=== PATIENT | male | born 2000 | race Hispanic/Latino ===

== ENCOUNTER 2020-12-30 08:33 | Emergency (ER) | payer SELFPAY ==
--- NOTE | 2020-12-30 10:43 | RAD REPORT ---
EXAM DESCRIPTION: US - Extremity Nonvascular Limited - 12/30/2020 10:13 am CLINICAL HISTORY: Superior left gluteal cleft pain and swelling;Pain COMPARISON: No comparisons FINDINGS: Limited sonographic evaluation was performed of the left gluteal region area of pain and p alpable abnormality. A 2.5 centimeter pole heterogeneous hypoechoic focus is present just deep to the skin surface. This is the correlate to the palpable abnormality and is most likely an abscess. Surro unding tissues are edematous. No other focal collection in the soft tissues. IMPRESSION: A 2.5 centimeter abscess is identified in the left gluteal area of pain and palpable mas s.
--- NOTE | 2020-12-30 12:37 | ER ---
Nurse's Notes [facility] Name: Brady Aden Age: 20 yrs Sex: Male : 2000 Arrival Date: 12/30/2020 Time: 08:34 Bed 27 Private MD: Diagnosis: Cutaneous abscess of buttock Presentation: 12/30 09:14 Chief complaint: Patient states: pain at lower back. Coronavirus screen: Client denies da3 travel out of the [place] in the last 14 days. Ebola Screen: No symptoms or risks identified at this time. Risk Assessment: Do you want to hurt yourself or someone else? Patient reports no desire to harm self or others. 09:14 Method Of Arrival: Ambulatory da3 09:15 Acuity: CARLITOS 4 da3 Triage Assessment: 09:16 General: Appears in no apparent distress. comfortable, uncomfortable, Behavior is calm, da3 cooperative. General: pt/s pain above tail bone positive on palpation.. Pain:. Historical: - Allergies: 09:15 No Known Allergies; da3 - Immunization history:: Client reports having NOT received the Covid vaccine. Screenin:44 Abuse screen: Denies threats or abuse. Nutritional screening: No deficits noted. vg1 Tuberculosis screening: No symptoms or risk factors identified. Fall Risk No fall in past 12 months (0 pts). No secondary diagnosis (0 pts). No IV (0 pts). Ambulatory Aid- None/Bed Rest/Nurse Assist (0 pts). Gait- Normal/Bed Rest/Wheelchair (0 pts) Mental Status- Oriented to own ability (0 pts). Total Dave Fall Scale indicates No Risk (0-24 pts). Assessment: 12:42 General: Appears in no apparent distress. uncomfortable, Behavior is calm, cooperative. vg1 Pain: Complains of pain in coccyx Pain currently is 7 out of 10 on a pain scale. Pain began 2-3 days ago. Neuro: Level of Consciousness is awake, alert, obeys commands, Oriented to person, place, time, situation. Cardiovascular: Patient's skin is warm and dry. Respiratory: Airway is patent Respiratory effort is even, unlabored. GI: No signs and/or symptoms were reported involving the gastrointestinal system. : No signs and/or symptoms were reported regarding the genitourinary system. EENT: No signs and/or symptoms were reported regarding the EENT system. Derm: Skin is healthy with good turgor, Skin is pink, warm \T\ dry. Abscess located on sacrum. Musculoskeletal: Circulation, motion, and sensation intact. Vital Signs: 09:16 BP 142 / 89; Pulse 77; Resp 18; Temp 98.8; Pulse Ox 98% on R/A; da3 ED Course: 08:34 Patient arrived in ED. as 09:02 [facility]C [facility] kb 09:02 Angel Luis Stoddard MD is Attending Physician. kb 09:15 Triage completed. da3 10:12 US Extrmty Nonvasular Limited In Process Unspecified. EDMS 12:23 Patient has correct armband on for positive identification. Placed in gown. Bed in low vg1 position. 12:38 Ivy Garay, RN is Primary Nurse. vg1 12:44 Arm band placed on. vg1 12:44 No provider procedures requiring assistance completed. Patient did not have IV access vg1 during this emergency room visit. Administered Medications: No medications were administered Outcome: 12:37 Discharge ordered by . kdr 12:44 Discharged to home ambulatory. vg1 12:44 Condition: stable 12:44 Discharge instructions given to patient, Instructed on discharge instructions, follow up and referral plans. medication usage, Demonstrated understanding of instructions, follow-up care, medications, Prescriptions given X 1. 12:45 Patient left the ED. vg1 Signatures: Dispatcher [employer] EDLA Apryl Poole FNP-C FNP-Angel Luis Rutledge MD MD kdr Martinez, Amelia as Ivy Garay, RN RN vg1 Jackson Joe, ERICKA RN da3
--- NOTE | 2020-12-30 12:37 | EDPHYS ---
Physician Documentation [facility] Name: Brady Aden Age: 20 yrs Sex: Male : 2000 Arrival Date: 12/30/2020 Time: 08:34 Bed 27 Private MD: ED Physician Angel Luis Stoddard HPI: 12/30 09:41 This 20 yrs old Male presents to ER via Ambulatory with complaints of Superior kdr left gluteal cleft pain and swelling. 09:41 The patient presents with pain Since yesterday, the patient has complained of kdr increasing pain in his superior left gluteal cleft. He has not had this before. He denies any prior history of similar pain.. The symptoms are located in the Superior left gluteal cleft. The pain does not radiate. The problem was sustained from unknown cause. Onset: The symptoms/episode began/occurred gradually, yesterday. Modifying factors: The patient symptoms are alleviated by nothing, the patient symptoms are aggravated by any movement. Severity of symptoms: At their worst the symptoms were mild, in the emergency department the symptoms are unchanged. The patient has not experienced similar symptoms in the past. The patient has not recently seen a physician. Historical: - Allergies: 09:15 No Known Allergies; da3 - Immunization history:: Client reports having NOT received the Covid vaccine. ROS: 09:41 Constitutional: Negative for fever, chills, and weight loss, Eyes: Negative for injury, kdr pain, redness, and discharge, ENT: Negative for injury, pain, and discharge, Neck: Negative for injury, pain, and swelling, Cardiovascular: Negative for chest pain, palpitations, and edema, Respiratory: Negative for shortness of breath, cough, wheezing, and pleuritic chest pain, Abdomen/GI: Negative for abdominal pain, nausea, vomiting, diarrhea, and constipation, : Negative for injury, bleeding, discharge, and swelling, MS/Extremity: Negative for injury and deformity, Skin: Negative for injury, rash, and discoloration, Neuro: Negative for headache, weakness, numbness, tingling, and seizure activity. Psych: Negative for depression, anxiety, suicide ideation, homicidal ideation, and hallucinations, Allergy/Immunology: Negative for hives, rash, and allergies, Endocrine: Negative for neck swelling, polydipsia, polyuria, polyphagia, and marked weight changes, Hematologic/Lymphatic: Negative for swollen nodes, abnormal bleeding, and unusual bruising. 09:41 Back: Positive for pain at rest, pain with movement, of the sacrum. Exam: 09:41 Constitutional: This is a well developed, well nourished patient who is awake, alert, kdr and in no acute distress. Head/Face: Normocephalic, atraumatic. 09:41 Back: pain, that is mild, of the sacrum, There is a small area on the left aspect of the superior gluteal cleft that is tender with minimal swelling. There is minimal erythema and no other obvious injury or abnormality.. Vital Signs: 09:16 BP 142 / 89; Pulse 77; Resp 18; Temp 98.8; Pulse Ox 98% on R/A; da3 Procedures: 12:34 I \T\ D: Incision and drainage was performed for an abscess of the The abscess area is in kdr the gluteal cleft. It is on the lateral aspect of the left side superiorly Prepped with Betadine, Drained small amount purulent fluid. Since wound was draining already, I expressed a small amount of purulent material. The patient felt better in the apparent abscess appeared to be decompressed. I advised the patient to utilize sitz bath at home along with some antibiotics and follow-up with surgery.. MDM: 12:34 Data reviewed: vital signs, nurses notes. kdr 12:37 Patient medically screened. kdr 12/30 09:38 Order name: US Vincent Gusman Limited; Complete Time: 11:21 kdr Administered Medications: No medications were administered Disposition Summary: 12/30/20 12:37 Discharge Ordered Location: Home kdr Problem: new kdr Symptoms: have improved kdr Condition: Stable kdr Diagnosis - Cutaneous abscess of buttock kdr Followup: kdr - With: Private Physician - When: 2 - 3 days - Reason: Wound Recheck, If symptoms return, Further diagnostic work-up, Recheck today's complaints, Continuance of care, Re-evaluation by your physician Discharge Instructions: - Discharge Summary Sheet kdr - How to Take a Sitz Bath kdr - Skin Abscess, [id number] kdr Forms: - Medication Reconciliation Form kdr - Thank You Letter kdr - Antibiotic Education kdr Prescriptions: - Bactrim DS 800-160 mg Oral Tablet - take 1 tablet by ORAL route every 12 hours for 7 days; 14 tablet; Refills: 0, kdr Product Selection Permitted Signatures: Dispatcher [employer] Angel Luis Mcgregor MD MD kdr Jackson Joe, RN RN da3
[2020-12-30] MEDS ORDERED: LIDOCAINE 1% W/EPI 1:100,000 MDV 20 ML VIAL ONE (12:47)
[2020-12-30 12:56] VITALS: BP 142/89; TEMP 98.8; O2SAT 98
[2020-12-30] MEDS ORDERED: HYDRALAZINE HCL 25 MG TABLET ONE (14:20)
== END 2020-12-30 12:45 | disposition home or self-care (01) ==
LOC: ER 08:33
DX: L02.31 Cutaneous abscess of buttock (principal)
CPT/HCPCS: 76882; 99283

== ENCOUNTER 2025-02-09 12:49 | Emergency (ER) | payer SELFPAY ==
[2025-02-09 14:52] LABS: Influenza A Ag Negative; Influenza B Ag Negative; SARS-CoV-2 Antigen Rapid Res Negative (Negative)
--- NOTE | 2025-02-09 15:15 | EDPHYS ---
Physician Documentation [facility] Name: Brady Aden Age: 24 yrs Sex: Male : 2000 Arrival Date: 02/09/2025 Time: 12:49 Bed 30 Private MD: ED Physician Sal Mariee HPI: 02/09 18:07 This 24 yrs old Male presents to ER via Ambulatory with complaints of expose ms3 to covid. 18:07 24-year-old male with no past medical history presents to the emergency department ms3 after being exposed to COVID. Patient states he is unable to return to work without a negative COVID test. Patient states home COVID test was negative. Patient denies fevers, chills. Patient endorses cough and congestion. Historical: - Allergies: 13: No Known Allergies; ss - Home Meds: 13: None [Active]; ss - PMHx: 13: None; ss - PSHx: 13: None; ss - Immunization history:: Adult Immunizations unknown. - Infectious Disease History:: Denies. - Social history:: Smoking status: Patient reports the use of cigarette tobacco products, smokes one-half pack cigarettes per day. ROS: 18:07 Constitutional: Negative for fever, and chills. Cardiovascular: Negative for chest ms3 pain, and palpitations. 18:07 Abdomen/GI: Negative for abdominal pain, nausea, vomiting, diarrhea, and constipation, Skin: Negative for injury, rash, and discoloration, Neuro: Negative for headache, weakness, numbness, tingling. 18:07 ENT: Positive for nasal discharge, sinus congestion, 18:07 Respiratory: Positive for cough, Exam: 18:07 Constitutional: This is a well developed, well nourished patient who is awake, alert, ms3 and in no acute distress. Cardiovascular: Regular rate and rhythm with a normal S1 and S2. No gallops, murmurs, or rubs. Normal PMI, no JVD. No pulse deficits. Respiratory: Lungs have equal breath sounds bilaterally, clear to auscultation and percussion. No rales, rhonchi or wheezes noted. No increased work of breathing, no retractions or nasal flaring. Abdomen/GI: Soft, non-tender, with normal bowel sounds. No distension or tympany. No guarding or rebound. No evidence of tenderness throughout. Skin: Warm, dry with normal turgor. Normal color with no rashes, no lesions, and no evidence of cellulitis. Vital Signs: 13:00 Weight 108.86 kg; Height 5 ft. 11 in. ; Pain 0/10; ss 13:02 BP 144 / 88; Pulse 62; Resp 15; Temp 97.9(TE); Pulse Ox 100% on R/A; ss 13:00 Body Mass Index 33.47 (108.86 kg, 180.34 cm) ss 13:00 Pain Scale: Adult ss MDM: 13:42 Medical Screening Exam initiated ms3 18:07 Differential diagnosis: flu, URI, COVID. Antibiotic administration: Not indicated, the ms3 patient has a suspected viral illness. Antibiotic administration: Not indicated. Data reviewed: vital signs. Counseling: I had a detailed discussion with the patient and/or guardian regarding the historical points, exam findings, and any diagnostic results supporting the discharge/admit diagnosis, lab results, the need for outpatient follow up, to return to the emergency department if symptoms worsen or persist or if there are any questions or concerns that arise at home. Special discussion: I discussed with the patient/guardian in detail that at this point there is no indication for admission to the hospital. It is understood, however, that if the symptoms persist or worsen the patient needs to return immediately for re-evaluation. ED course: Discussed negative flu and COVID results with patient. Patient to follow-up with primary care physician 2 to 3 days. Patient understands agrees with plan peer all questions were answered. Return precautions were discussed include worsening symptoms, or any other concerns.. 02/09 13:17 Order name: COVID-19 Ag + Flu A+B Ag; Complete Time: 15:00 ms3 Administered Medications: No medications were administered Disposition Summary: 02/09/25 15:14 Discharge Ordered Notes: Location: Home ms3 Condition: Stable ms3 Diagnosis - Acute upper respiratory infection, unspecified ms3 Followup: ms3 - With: Eulalio Verma DO - When: 2 - 3 days - Reason: Recheck today's complaints Discharge Instructions: - Discharge Summary Sheet ms3 - Upper Respiratory Infection, Adult ms3 Forms: - Medication Reconciliation Form ms3 - Antibiotic Education ms3 - Prescription Opioid Use ms3 - Patient Portal Instructions ms3 - Leadership Thank You Letter ms3 Prescriptions: - Claritin 10 mg Oral Tablet - take 1 tablet ORAL route once daily As needed; 30 tablet; Refills: 0, Product ms3 Selection Permitted - benzonatate 200 mg Oral capsule - take 1 capsule ORAL route 3 times per day as needed; 20 capsule; Refills: 0, ms3 Product Selection Permitted Signatures: Dispatcher [employer] Ruth Boles RN RN ss Sal Mariee DO DO ms3 Idalmis Pickering RN RN af3
--- NOTE | 2025-02-09 15:15 | ER ---
Nurse's Notes [facility] Name: Brady Aden Age: 24 yrs Sex: Male : 2000 Arrival Date: 02/09/2025 Time: 12:49 Bed 30 Private MD: Diagnosis: Acute upper respiratory infection, unspecified Presentation: 02/09 13:00 Chief complaint: Patient states: Requesting a COVID test for work. Has no symptoms. ss Coronavirus screen: Client denies travel out of the [place] in the last 14 days. Ebola Screen: Patient denies exposure to infectious person. Patient denies travel to an Ebola-affected area in the 21 days before illness onset. Initial Sepsis Screen: Does the patient meet any 2 criteria? No. Patient's initial sepsis screen is negative. Does the patient have a suspected source of infection? No. Patient's initial sepsis screen is negative. Risk Assessment: Do you want to hurt yourself or someone else? Patient reports no desire to harm self or others. Onset of symptoms is unknown. 13:00 Method Of Arrival: Ambulatory ss 13:00 Acuity: CARLITOS 5 ss Historical: - Allergies: 13:01 No Known Allergies; ss - Home Meds: 13:01 None [Active]; ss - PMHx: 13:01 None; ss - PSHx: 13:01 None; ss - Immunization history:: Adult Immunizations unknown. - Infectious Disease History:: Denies. - Social history:: Smoking status: Patient reports the use of cigarette tobacco products, smokes one-half pack cigarettes per day. Screenin:40 [facility] ED Fall Risk Assessment (Adult) History of falling in the last 3 months, af3 including since admission No falls in past 3 months (0 pts) Confusion or Disorientation No (0 pts) Intoxicated or Sedated No (0 pts) Impaired Gait No (0 pts) Mobility Assist Device Used No (0 pt) Altered Elimination No (0 pt) Score/Fall Risk Level 0 - 2 = Low Risk Oriented to surroundings, Maintained a safe environment, Educated pt \T\ family on fall prevention, incl call for assistance when getting out of bed. Abuse screen: Denies threats or abuse. Denies injuries from another. Nutritional screening: No deficits noted. Tuberculosis screening: No symptoms or risk factors identified. Assessment: 13:40 General: Appears in no apparent distress. comfortable, well groomed, well developed, af3 Behavior is calm, cooperative, appropriate for age. Pain: Denies pain. Neuro: Level of Consciousness is awake, alert, obeys commands, Oriented to person, place, time, situation, Appropriate for age. Cardiovascular: Patient's skin is warm and dry. Respiratory: Airway is patent Respiratory effort is even, unlabored, Respiratory pattern is regular, symmetrical. 14:44 Reassessment: Patient appears in no apparent distress at this time. No changes from af3 previously documented assessment. Patient and/or family updated on plan of care and expected duration. Pain level reassessed. Patient is alert, oriented x 3, equal unlabored respirations, skin warm/dry/pink. Vital Signs: 13:00 Weight 108.86 kg; Height 5 ft. 11 in. ; Pain 0/10; ss 13:02 BP 144 / 88; Pulse 62; Resp 15; Temp 97.9(TE); Pulse Ox 100% on R/A; ss 13:00 Body Mass Index 33.47 (108.86 kg, 180.34 cm) ss 13:00 Pain Scale: Adult ss ED Course: 12:52 Patient arrived in ED. al6 12:55 Sal Mariee DO is Attending Physician. ms3 13:01 Triage completed. ss 13:01 Arm band placed on right wrist. ss 13:40 Idalmis Pickering, ERICKA is Primary Nurse. af3 13:40 Patient has correct armband on for positive identification. Bed in low position. Call af3 light in reach. Provided Education on: call light use. 13:40 No provider procedures requiring assistance completed. af3 15:13 Eulalio Verma DO is Referral Physician. ms3 15:25 Patient did not have IV access during this emergency room visit. ap3 Administered Medications: No medications were administered Medication: 13:40 VIS not applicable for this client. af3 Outcome: 15:14 Discharge ordered by . ms3 15:25 Discharged to home ambulatory, with family, ap3 15:25 Condition: good 15:25 Discharge instructions given to patient, family, Instructed on discharge instructions, follow up and referral plans. medication usage, Demonstrated understanding of instructions, follow-up care, medications, Prescriptions given X 2, 15:25 Patient left the ED. ap3 Signatures: Ruth Salinas RN RN ss Whitney Cruz, RN RN ap3 Sal Mariee DO DO ms3 Idalmis Pickering, RN RN af3 Jaleesa Youngblood6
[2025-02-09 15:54] VITALS: BP 144/88; TEMP 97.9; O2SAT 100
== END 2025-02-09 15:25 | disposition home or self-care (01) ==
LOC: ER 12:49
DX: J06.9 Acute upper respiratory infection, unspecified (principal); F17.210 Nicotine dependence, cigarettes, uncomplicated; Z11.52 Encounter for screening for COVID-19
CPT/HCPCS: 36415; 87428; 99283